=== PATIENT | female | born 2000 | race Caucasian/White ===

== ENCOUNTER 2020-04-02 00:24 | Emergency (ER) | payer OTHER ==
[~2020-04-02] VITALS: Ht 167.6 cm; Wt 54.5 kg
[2020-04-02] MEDS ORDERED: RISPERDAL 3 MG T3 M1 PO (00:40)
[2020-04-02] MEDS ORDERED: BENZTROPINE MES1 MG PO (00:41)
[2020-04-02] MEDS ORDERED: [UNRECOGNIZED DRUG - OTHER] (00:42)
[2020-04-02] MEDS ORDERED: DEPAKOTE500 MG PO (00:43)
[2020-04-02] MEDS ORDERED: KLONOPIN1 MG PO (00:43)
[2020-04-02 01:17] LABS: ABSOLUTE EOSINOPHILS 0.1 thou/uL (0.0-0.7); ABSOLUTE LYMPHOCYTES 2.8 thou/uL (0.8-5.3); ABSOLUTE MONOCYTES 0.6 thou/uL (0.0-1.2); ABSOLUTE NEUTROPHILS 2.5 thou/uL (1.6-8.1); BASOPHILS 0.4 %; EOSINOPHILS 2.4 %; HEMATOCRIT 43.8 % (37.0-47.0); HEMOGLOBIN 14.9 gm/dL (12.0-15.0); LYMPHOCYTES 46.4 %; MCH 33.7 pg (26.0-34.0); MCV 99.2 fL (80.0-100.0); MONOCYTES 9.8 %; NUCLEATED RBCS 0 /100WBC; PLATELET COUNT* 207 thou/uL (150-400); RBC 4.41 mil/uL (4.20-5.00); RDW-CV 13.2 % (10.5-14.5); WBC 6.1 thou/uL (4.0-11.0)
[2020-04-02 01:28] LABS: CALCIUM 9.3 mg/dL (8.5-10.1); CREATININE 0.9 mg/dL (0.6-1.3); POTASSIUM 3.7 mmol/L (3.5-5.1)
[2020-04-02 01:34] LABS: ALBUMIN 4.5 g/dL (3.4-5.0); TOTAL BILIRUBIN 0.9 mg/dL (<0.1-1.0)
[2020-04-02] MEDS ORDERED: XANAX 0.5 MG0.5 MG PO (02:03)
[2020-04-02 02:06] LABS: URINE BILIRUBIN NEGATIVE (Negative); URINE BLOOD NEGATIVE (Negative); URINE CLARITY CLEAR; URINE COLOR YELLOW; URINE GLUCOSE-RANDOM NEGATIVE (Negative); URINE KETONES NEGATIVE (Negative); URINE LEUKOCYTES-REFLEX NEGATIVE (Negative); URINE NITRITE-REFLEX NEGATIVE (Negative); URINE PROTEIN NEGATIVE (Negative); URINE UROBILINOGEN 0.2 E.U./dl (0.2-1.0)
[2020-04-02 02:15] LABS: AMP/METHAMP Negative (Negative); BARBITURATES Negative (Negative); BENZODIAZEPINES Negative (Negative); COCAINE Negative (Negative); METHADONE Negative (Negative); OPIATES Negative (Negative); PCP Negative (Negative); THC Negative (Negative)
[2020-04-02 02:16] VITALS: BP 110/68
--- NOTE | 2020-04-03 16:53 | EKG ---
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2000 Requested By: Quan Morrison Order Number: [id number] MD: Enrique Vázquez Measurements Intervals [place] Rate: 126 P: 69 RI: 150 QRS: 87 QRSD: 79 T: 6 QT: 292 QTc: 423 Interpretive Statements Sinus tachycardia rsr' in V1 LAE, consider biatrial enlargement No previous ECG available for comparison Electronically Signed On 04-03-2020 16:53:08 CDT by Enrique Vázquez [email or web address] <ELECTRONICALLY SIGNED> By: Enrique Vázquez MD, [facility] 04/03/20 1653 0041 004 Enrique Vázquez MD, [facility] /EPI
== END 2020-04-02 02:17 | disposition home or self-care (01) ==
LOC: M.ERS 00:24
PROVIDERS: Family Medicine
DX: F41.0 Panic disorder [episodic paroxysmal anxiety] (principal); R00.2 Palpitations; F31.9 Bipolar disorder, unspecified; F20.9 Schizophrenia, unspecified